=== PATIENT | male | born 1960 | race Caucasian/White ===

== ENCOUNTER 2017-04-05 22:38 | Inpatient (IN) | payer OTHER ==
[~2017-04-05] VITALS: Ht 167.6 cm; Wt 85.5 kg
[2017-04-05 23:05] LABS: ABSOLUTE BASOPHIL COUNT 0 /CUMM (0.0-0.2); ABSOLUTE EOSINOPHIL COUNT 0.1 /CUMM (0.0-0.7); ABSOLUTE GRANULOCYTE CT 3.9 /CUMM (1.4-6.5); ABSOLUTE LYMPH COUNT 1.7 /CUMM (1.2-3.4); ABSOLUTE MONOCYTE COUNT 0.3 /CUMM (0.10-0.60); BASOPHIL % 0.3 % (0.0-2.0); EOSINOPHIL % 2.2 % (0-5); GRANULOCYTE % 64.5 % (42.2-75.2); MEAN CORPUSCULAR HGB 31.4 PG (27.0-31.0); MEAN CORPUSCULAR HGB CONC 34.7 G/DL (33.0-37.0); MEAN CORPUSCULAR VOLUME 90.6 FL (80.0-94.0); MEAN PLATELET VOLUME 7.4 FL (7.4-10.4); PLATELET COUNT 176 /CUMM (130-400); RBC DISTRIBUTION WIDTH 13.1 % (11.5-14.5); RED BLOOD CELL CT 4.62 /CUMM (4.70-6.10)
[2017-04-05 23:17] LABS: HEMATOCRIT 41.8 % (42-52)
--- NOTE | 2017-04-06 03:15 | History & Physical ---
LOU BEAL MD 04/06/17 0315: General Information and HPI MD Statement: I have seen and personally examined LOU SAUER and documented this H&P. The patient is a 56 year old M who presented with a patient stated chief complaint of chest pain. Source of Information: patient Exam Limitations: no limitations History of Present Illness: 56 year old man with no PMH presents with complaints of 1 week of feeling chest pressure 7/10 in intensity, that lasts less than 10 minutes typically accompanies with shortness of breath and mild diaphoresis during exertion. Chest pressure is relieved by rest. ROS otherwise negative. FH significant for MD in father at 48. Patient experiences heart burn and states this pain is distinctly different. Allergies/Medications Allergies: Coded Allergies: No Known Allergies (04/05/17) Past History Travel History Traveled to [place] past 21 day No Medical History Neurological: NONE EENT: NONE Cardiovascular: NONE Respiratory: NONE Gastrointestinal: NONE Hepatic: NONE Renal: NONE Musculoskeletal: NONE Psychiatric: NONE Endocrine: NONE Surgical History Surgical History: none Past Family/Social History Family History Relations & Conditions if any FATHER FH: myocardial infarction, Onset: 40-50. Psychosocial History Smoking Status: Never Smoked ETOH Use: occasional use Review of Systems Review of Systems Constitutional: Denies: no symptoms. EENTM: Denies: no symptoms. Cardiovascular: Reports: chest pain. Respiratory: Reports: short of breath. GI: Denies: no symptoms. Genitourinary: Denies: no symptoms. Musculoskeletal: Denies: no symptoms. Skin: Denies: no symptoms. Neurological/Psychological: Denies: no symptoms. Exam & Diagnostic Data Last 24 Hrs of Vital Signs/I&O Vital Signs Date Time Temp Pulse Resp B/P B/P Pulse O2 O2 Flow FiO2 Mean Ox Delivery Rate 04/06 0255 97.0 56 18 145/75 98 Room Air 04/06 0120 98 Room Air 04/06 0116 73 18 133/69 98 Room Air 04/05 2247 96.9 66 22 138/73 98 Intake & Output 04/06 0800 04/06 0000 04/05 1600 Intake Total Output Total Balance Patient 190 lb Weight Physical Exam General Appearance Alert, Oriented X3, Cooperative, No Acute Distress Skin No Rashes HEENT Atraumatic, PERRLA, EOMI, Mucous Membr. moist/pink Neck Supple, No JVD Cardiovascular Regular Rate, Normal S1, Normal S2, No Murmurs Lungs Clear to Auscultation, Normal Air Movement Abdomen Normal Bowel Sounds, Soft, No Tenderness, No Masses Neurological Normal Speech, Strength at 5/5 X4 Ext, Normal Tone Extremities No Clubbing, No Cyanosis, No Edema, Normal Pulses Last 24 Hrs of Labs/Dax: Laboratory Tests 04/05/17 2300: Anion Gap 7, Estimated GFR > 60, BUN/Creatinine Ratio 22.7, Glucose 107 H, Calcium 8.8, Total Bilirubin 0.3, AST 24, ALT 35, Alkaline Phosphatase 53, Troponin I 0.04, Total Protein 5.7 L, Albumin 3.5, Globulin 2.2, Albumin/ Globulin Ratio 1.6, CBC w Diff NO MAN DIFF REQ, RBC 4.62 L, MCV 90.6, MCH 31.4 H, RDW 13.1, MPV 7.4, Gran % 64.5, Lymphocytes % 27.5, Monocytes % 5.5, Eosinophils % 2.2, Basophils % 0.3, Absolute Granulocytes 3.9, Absolute Lymphocytes 1.7, Absolute Monocytes 0.3, Absolute Eosinophils 0.1, Absolute Basophils 0, PUBS MCHC 34.7 Diagnostic Data EKG Results NSR Assessment/Plan Assessment: 56 year old man with no PMH presents with chest pressure on observation to rule out acute coronary syndrome. 1. Chest pressure: no ischemic EKG changes, first troponin negative. Observation status on telemetry, vitals q shift and continuous rhythm monitoring Trend serial troponins and EKGs Patient received aspirin in the ER Consider beta blockade for hypertension, currently in NSR with HR of 60. Echocardiogram and possible stress test as an outpatient if ruled out for ACS No home medications Heart healthy diet DVT ppx-lovenox Full code As Ranked By This Provider Problem List: 1. Chest pain Core Measures/Miscellaneous Acute Coronary Syndrome ACS Diagnosis: No Cerebrovascular Accident CVA/TIA Diagnosis: No Congestive Heart Failure CHF Diagnosis: No VTE (View Protocol) VTE Risk Factors: Acute medical illness, Age > 40 [facility] prophylaxis d/t: No contraindications No VTE Pharm Prophylaxis d/t: No contraindications VTE Diagnosis: No VTE Type: NONE VTE Confirmed by (Test): NONE Sepsis (View Protocol) Severe Sepsis Present: No Septic Shock Septic Shock Present: No Miscellaneous Documentation Attending Case Discussed With: RATNA HARRIS MD Primary Care Physician: ATUL MENDENHALL,CARLOTTA Dasilva Patient sees these Specialists none Level of Patient Care: Telemetry Consults Needed: Consulting Specialty: Cardiology MEI MORENO 04/06/17 0350: General Information and HPI Allergies/Medications Home Med list No Known Home Medications Resident Review Statement Resident Statement: examined this patient, discussed with security intern, agreed with security intern Other Findings: Patient is 56-year-old patient is a 56-year-old male with nonsignificant past medical history came with chief complaint of substernal chest pressure off and on for couple of days. Patient mentioned that he had exertional chest pain and shortness of breath which stayed almost for 10 minutes relieved with rest, 7 out of 10 in severity, pressure or burning in nature at multiple occasions in past week. This morning after breakfast he experienced the same symptoms, 911 was called and by the time they were reached patient was asymptomatic. Later on he came to ER for further evaluation. He has significant family history of cardiac events. His father at age 48 with MD. He denied any chest pain at the moment, palpitations, headache, dizziness, shortness of breath, fever, chills, any urinary or bowel complaints. The signs on admission were that pressure 133/69, respiratory rate 18, pulse 73, he was saturating 98% on room air. Labs were significant for WBC count 6.0, hemoglobin 14.5, hematocrit 41.8, to 6, sodium 144, potassium 3.4, chloride 107, creatinine 1.1, troponin 0.04, EKG was negative for any acute ST-T wave changes His examination Alert and oriented 3 Head atraumatic Neck supple Chest clear to auscultate CVS, normal S1-S2 no added sounds Abdomen soft with normal bowel sounds Extremities showed no edema or cyanosis Neurological examination showed no neurological deficit Assessment and plan 56-year-old male with significant family history of heart attack in his father at age 48 with no significant past medical history came with atypical chest pain with exertion most likely stable angina needs ACS to be ruled out. We will admit patient on telemetry floor and we will address for problem Problem #1 exertional chest pressure most likely anginal chest pain We will trend troponins and EKGs Echocardiogram in a.m. Cardiology consultation in a.m. Patient would be benefited from stress test it could be done as outpatient but patient would be evaluated by cardiology and we will do stress test accordingly. Heart healthy diet Patient is full code Pharmacological DVT prophylaxis STEVEN MENDENHALL, [facility] 04/06/17 0456: Attending MD Review Statement Attending Statement Attending MD Statement: examined this patient, discuss w/resident/PA/STAMP MOUNTER, agreed w/resident/PA/STAMP MOUNTER, discussed with family Attending Assessment/Plan: 56 yo obese M ex-smoker with h/o heartburn, family h/o MD in father @ 48 yrs, presents to [place] for evaluation of chest pressure. Patient first noticed substernal chest pressure 10 days ago that was non radiating, lasted about 10 mins and resolved with rest. He saw his PCP Dr. Curtis 1 week ago and got blood work done at [place]- results of which he is not aware. Over the past 1 week, he has experienced similar chest pressure atleast twice a day especially on exertion and relieved on rest. He reports that this is not similar to the heartburn symptoms he has had in the past which is relieved with keith seltzer. This evening, around 9.30 pm, he ate a bowl of cereal and immediately after developed SSCP associated with difficulty breathing, nausea and diaphoresis. SSCP was nonradiating, 10/10 and lasted for about 45 minutes after which it resolved on its own. He is chest pain free on ER arrival and on my evaluation. No previous cardiac history, never had a stress test or seen a dust operator. Patient reports smoking weed every few days, last he smoked was on day of admission. VSS. Examination unremarkable. Labs: H/H 14.5/41.8, K 3.4, BUN 25, glucose 107, troponin 0.04, lipid panel: cholesterol 204, TG 240, HDL 54, LDL 102 (04/01), TSH 1.910. EKG: SR @ 60, minimal <[address] depressions in inferior leads, Qtc 420. 1. Chest pain, rule out acute coronary syndrome. Tele 23 Obs, monitor for arrhythmias, serial EKG and troponin, obtain echo to assess for RWMA and LVEF, Cardio consult in AM. Aspirin 325 mg given in ER, continue 81 mg daily. Monitor for chest pain, consider SL nitro as needed. Check HbA1c and urine tox screen. No need to repeat lipid panel (done recently). Lifestyle changes, recheck lipid panel in 6 months. Inpatient vs. Outpatient stress test. If he rules out for MD, would do empiric trial of PPI for 2 weeks and outpatient GI follow up for eventual EGD as needed. 2. Hypokalemia. Repleted with PO supplements. DVT ppx Lovenox. Full code. Observation Initial Note - I have personally examined TEAGANLOU Bhatti on 04/06/17 at 0457. The disposition of LOU SAUER is uncertain at this time and before a determination can be made, he requires a period of observation for the following reasons [substernal chest pressure needs to evaluated for acute coronary event, cardiology eval and possible stress test.]
--- NOTE | 2017-04-06 04:37 | RADIOLOGY REPORT ---
EXAMINATION: XR PORTABLE CHEST CLINICAL INFORMATION: Chest pain. COMPARISON: None TECHNIQUE: Portable frontal view of the chest was obtained. 4:02 AM FINDINGS: No significant abnormality is noted involving the heart, lungs, mediastinum, bony thorax or soft tissues. IMPRESSION: Unremarkable examination.
[2017-04-06 05:31] VITALS: BP 144/76
--- NOTE | 2017-04-06 07:12 | PN- Housestaff ---
Assessment/Plan Consulting Request: Consulting Specialty: Cardiology
--- NOTE | 2017-04-06 07:13 | PN-Observation ---
Assessment/Plan Consulting Request: Consulting Specialty: Cardiology
--- NOTE | 2017-04-06 09:35 | PN- Housestaff ---
Subjective Follow-up For: -NSTEMI Complaints: no complaints Tele-Events Since Last Visit: Normal sinus rhythm, heart rate 60s. Overnight, the patient did not have any telemetry events. Vitals remained stable. He was afebrile. Subjective: The pt was comfortable this morning. Did not have any chest discomfort. Review of Systems Constitutional: Reports: see HPI. EENTM: Denies: visual changes. Cardiovascular: Denies: chest pain, orthopena, palpitations. Respiratory: Denies: cough, hemoptysis, short of breath. Gastrointestinal: Denies: abdominal pain, melena, nausea, bloody stool. Genitourinary: Denies: discharge. Musculoskeletal: Denies: back pain, joint pain. Skin: Denies: change in skin color. Objective Last 24 Hrs of Vital Signs/I&O Vital Signs Date Time Temp Pulse Resp B/P B/P Pulse O2 O2 Flow FiO2 Mean Ox Delivery Rate 04/06 0531 98.8 64 18 144/76 95 Room Air 04/06 0422 96.8 63 18 179/75 99 Room Air 04/06 0255 97.0 56 18 145/75 98 Room Air 04/06 0120 98 Room Air 04/06 0116 73 18 133/69 98 Room Air 04/05 2247 96.9 66 22 138/73 98 Intake & Output 04/06 1600 04/06 0800 04/06 0000 Intake Total Output Total 550 Balance -550 Number 0 Bowel Movements Output, Urine 550 Patient 189 lb 190 lb 190 lb Weight Weight Chair scale Measurement Method Physical Exam General Appearance: Alert, Oriented X3, No Acute Distress Skin: No Rashes, No Breakdown Skin Temp/Moisture Exam: Warm/Dry Sepsis Skin Exam (color): Normal for Ethnicity HEENT: Atraumatic, PERRLA, EOMI Neck: Supple Lymphatic: Cervical nl Cardiovascular: Regular Rate, Normal S1, Normal S2 Lungs: Clear to Auscultation, Normal Air Movement Abdomen: Normal Bowel Sounds, Soft, No Tenderness Neurological: Normal Speech, Strength at 5/5 X4 Ext, Normal Tone, Sensation Intact, Cranial Nerves 3-12 NL, Reflexes 2+ Extremities: No Cyanosis, No Edema, Normal Pulses Vascular: Pulses Symmetrical Current Medications: Current Medications Sig/Sam Start time Last Medication Dose Route Stop Time Status Admin Acetaminophen 650 MG Q6P PRN 04/06 0400 AC PO Aspirin 81 MG DAILY 04/06 1000 AC PO Aspirin 0 .STK-MED ONE 04/06 0122 DC PO Aspirin 325 MG ONCE ONE 04/06 0115 DC 04/06 PO 04/06 011 0116 Atorvastatin Calcium 80 MG 1700 04/06 0915 AC PO Enoxaparin Sodium 40 MG DAILY 04/06 1000 AC SC Heparin Sodium 25,000 UNIT Q24H 04/06 0915 AC (Porcine) IV Sodium Chloride 500 ML Ibuprofen 600 MG Q6P PRN 04/06 0400 AC PO Metoprolol Tartrate 12.5 MG DAILY 04/06 1000 AC PO Oxycodone HCl 10 MG Q6P PRN 04/06 0400 AC PO Potassium Chloride 0 .STK-MED ONE 04/06 0424 DC PO Potassium Chloride 40 MEQ ONCE ONE 04/06 415 DC 04/06 PO 04/06 416 042 Last 24 Hrs of Lab/Dax Results Last 24 Hrs of Labs/Mics: Laboratory Tests 04/06/17 0520: Troponin I 0.14 *H 04/06/17 0520: Anion Gap 8, Estimated GFR > 60, BUN/Creatinine Ratio 22.2, Urine Opiates Screen < 100.00, Methadone Screen < 40, Barbiturate Screen < 60, Ur Phencyclidine Scrn < 6.00, Amphetamines Screen < 100, U Benzodiazepines Scrn < 85, Urine Cocaine Screen 286, Urine Cannabis Screen > 80.00 H 04/05/17 2300: Anion Gap 7, Estimated GFR > 60, BUN/Creatinine Ratio 22.7, Glucose 107 H, Hemoglobin A1c 5.3, Calcium 8.8, Total Bilirubin 0.3, AST 24, ALT 35, Alkaline Phosphatase 53, Troponin I 0.04, Total Protein 5.7 L, Albumin 3.5, Globulin 2.2 , Albumin/Globulin Ratio 1.6, CBC w Diff NO MAN DIFF REQ, RBC 4.62 L, MCV 90.6, MCH 31.4 H, RDW 13.1, MPV 7.4, Gran % 64.5, Lymphocytes % 27.5, Monocytes % 5.5 , Eosinophils % 2.2, Basophils % 0.3, Absolute Granulocytes 3.9, Absolute Lymphocytes 1.7, Absolute Monocytes 0.3, Absolute Eosinophils 0.1, Absolute Basophils 0, PUBS MCHC 34.7 Assessment/Plan Assessment: Mr Huddleston is a 56 yr old nonsmoking man with a family history of coronary artery disease is being evaluated for exertional chest discomfort 1 week, associated with shortness of breath. At the time of admission, vitals-temperature 96.9, pulse rate 66, blood pressure 138/78, pulse ox 98% on room air. In the last 24 hours, vitals were stable. Lab findings indicated-no leukocytosis, H&H normal, platelets normal. Lites- found to be hypokalemic potassium 3.4 (replenished accordingly), normal renal function BUN 20, serum creatinine 0.9, HbA1c 5.3. Hepatic panel-within normal limits. Cardiac enzymes-0.04--> 0.14. EKG revealed ST segment changes (depression) V4, V5, which seem more pronounced compared to the time of admission. Normal sinus rhythm, normal axis. Differential diagnosis: #1 non-ST segment elevation RI. #2 gastroesophageal reflux disease #3 type II RI Below is the problem list and plan: #1 non-ST segment elevation RI- patient has a strong family history, father age less than 50; male. JEREMIAH risk score-2. Patient was given aspirin 325 mg at the time of presentation to the ED. Continue daily dose of aspirin, beta brenda, and high-dose statin. Last lipid panel was checked fairly recently which revealed elevated cholesterol and triglycerides. Start the patient on high intensity statin. Follow serial echocardiograms and cardiac enzymes. Started the patient on intravenous heparin, but held off at the moment, as per the patient's wishes (who would like to discuss with the business law professor prior to starting any anti-anginal/cardiac medications). Await recommendations from cardiology, if catheterization is needed. #2 DVT prophylaxis-continue Lovenox subcutaneous until IV heparin is begun. Problem List: 1. Chest pain Pain Ratin Pain Location: chest Pain Goal: Pain 4 or less Pain Plan: oxycodone Tomorrow's Labs & Rationales: bep- pt had hypokalemia Consulting Request: Consulting Specialty: Cardiology
--- NOTE | 2017-04-06 10:27 | PN- Att Addend ---
Attending Addendum Attending Brief Note Patient seen and examined. Plan of care discussed with the medical team and the patient. Available lab work and radiology test reports were reviewed. History was reviewed with the patient again. This morning patient denies any pain nausea or sweats. He appears somewhat anxious. Denies any recent fever or chills. Vital Signs Date Time Temp Pulse Resp B/P B/P Pulse O2 O2 Flow FiO2 Mean Ox Delivery Rate 04/06 0531 98.8 64 18 144/76 95 Room Air 04/06 0422 96.8 63 18 179/75 99 Room Air 04/06 0255 97.0 56 18 145/75 98 Room Air 04/06 0120 98 Room Air 04/06 0116 73 18 133/69 98 Room Air 04/05 2247 96.9 66 22 138/73 98 Intake & Output 04/06 1600 04/06 0800 04/06 0000 Intake Total Output Total 550 Balance -550 Number 0 Bowel Movements Output, Urine 550 Patient 189 lb 190 lb 190 lb Weight Weight Chair scale Measurement Method Exam: General: Patient awake alert oriented without any distress; he is anxious CVS: S1 plus S2 without any murmur or gallops Chest: Few scattered crepitation without any wheeze. There is no respiratory distress. Abdomen: Soft nontender, bowel sound present, no guarding or rebound LOSS CLAIM CLERK: Awake alert oriented without any focal neuro deficit and follows command appropriately Extremities: No edema; no clubbing or cyanosis noted Laboratory Tests 04/06 04/06 04/05 0520 0520 2300 Chemistry Sodium (137 - 145 mmol/L) 142 144 Potassium (3.5 - 5.1 mmol/L) 4.2 3.4 L Chloride (98 - 107 mmol/L) 109 H 107 Carbon Dioxide (22 - 30 mmol/L) 25 29 Anion Gap (5 - 16) 8 7 BUN (9 - 20 mg/dL) 20 25 H Creatinine (0.7 - 1.2 mg/dL) 0.9 1.1 Estimated GFR (>60 ml/min) > 60 > 60 BUN/Creatinine Ratio (7 - 25 %) 22.2 22.7 Glucose (65 - 99 mg/dL) 107 H Hemoglobin A1c (4.2 - 5.8 %) 5.3 Calcium (8.4 - 10.2 mg/dL) 8.8 Total Bilirubin (0.2 - 1.3 mg/dL) 0.3 AST (17 - 59 U/L) 24 ALT (21 - 72 U/L) 35 Alkaline Phosphatase (< 127 U/L) 53 Troponin I (<0.11 ng/ml) 0.14 *H 0.04 Total Protein (6.3 - 8.2 g/dL) 5.7 L Albumin (3.5 - 5.0 g/dL) 3.5 Globulin (1.9 - 4.2 gm/dL) 2.2 Albumin/Globulin Ratio (1.1 - 2.2 %) 1.6 Hematology CBC w Diff NO MAN DIFF REQ WBC (4.8 - 10.8 /CUMM) 6.0 RBC (4.70 - 6.10 /CUMM) 4.62 L Hgb (14.0 - 18.0 G/DL) 14.5 Hct (42 - 52 %) 41.8 L MCV (80.0 - 94.0 FL) 90.6 MCH (27.0 - 31.0 PG) 31.4 H RDW (11.5 - 14.5 %) 13.1 Plt Count (130 - 400 /CUMM) 176 MPV (7.4 - 10.4 FL) 7.4 Gran % (42.2 - 75.2 %) 64.5 Lymphocytes % (20.5 - 51.1 %) 27.5 Monocytes % (1.7 - 9.3 %) 5.5 Eosinophils % (0 - 5 %) 2.2 Basophils % (0.0 - 2.0 %) 0.3 Absolute Granulocytes (1.4 - 6.5 /CUMM) 3.9 Absolute Lymphocytes (1.2 - 3.4 /CUMM) 1.7 Absolute Monocytes (0.10 - 0.60 /CUMM) 0.3 Absolute Eosinophils (0.0 - 0.7 /CUMM) 0.1 Absolute Basophils (0.0 - 0.2 /CUMM) 0 PUBS MCHC (33.0 - 37.0 G/DL) 34.7 Toxicology Urine Opiates Screen (>2000 NG/ML) < 100.00 Methadone Screen (>300 NG/ML) < 40 Barbiturate Screen (>200 NG/ML) < 60 Ur Phencyclidine Scrn (>25 NG/ML) < 6.00 Amphetamines Screen (>1000 NG/ML) < 100 U Benzodiazepines Scrn (>200 NG/ML) < 85 Urine Cocaine Screen (>300 NG/ML) 286 Urine Cannabis Screen (>50 NG/ML) > 80.00 H Chest x-ray upon admission was unremarkable EKG does not show ST elevation Assessment * Non-ST segment elevation WV- strong family history with father dying of W[place] at young age * Suspected GERD * Mild hypokalemia resolved * Cannabis use Plan * Start heparin drip IV and stop Lovenox * Start statins * Start beta brenda with Lopressor 12.5 twice a day * Continue aspirin * Cardiac consult- * Echocardiogram * Patient likely will need stress test or cardiac catheterization * Continue telemetry monitoring
[2017-04-06 10:45] VITALS: BP 142/70
--- NOTE | 2017-04-06 11:20 | Cons- Cardiology ---
General Information and HPI Consulting Request Date of Consult: 04/06/17 Requested By: STEVEN MENDENHALL,NIKKIKSHMI Reason for Consult: Unstable angina History of Present Illness: The patient is a 56-year-old male with strong family history of coronary artery disease who presents with complaint of chest discomfort. He has been having intermittent chest discomfort for the past week which has been up to a 8 out of 10 in severity. It is typically brought on by exertion. He describes it as either a squeezing or burning in the substernal area. Last night he had an episode of squeezing which wasn't out of 10 in severity and was associated with diaphoresis. There is no radiation. He also notes intermittent shortness of breath associated with the chest discomfort. His father of a myocardial infarction at age 48 after having his first myocardial infarction at age 36. The patient quit smoking 26 years ago. He drinks up to 6 beers several days a week. He is currently pain-free. No syncope. No orthopnea. No lightheadedness or dizziness. No nausea or vomiting. No prior history of cardiac disease. Allergies/Medications Allergies: Coded Allergies: No Known Allergies (04/05/17) Home Med List: Aspirin (Aspirin*) 81 MG TAB.CHEW 81 MG PO DAILY HEART [facility]ALTH Atorvastatin Calcium 80 MG TABLET 80 MG PO 1700 HE[facility] HEALTH Metoprolol Tartrate 25 MG TABLET 12.5 MG PO BID HEART [facility] Current Medications: Current Medications Sig/Sam Start time Last Medication Dose Route Stop Time Status Admin Acetaminophen 650 MG Q6P PRN 04/06 0400 AC PO Aspirin 81 MG DAILY 04/06 1000 AC 04/06 PO 1045 Aspirin 0 .STK-MED ONE 04/06 0122 DC PO Aspirin 325 MG ONCE ONE 04/06 0115 DC 04/06 PO 04/06 0116 0116 Atorvastatin Calcium 80 MG 1700 04/06 0915 AC PO Enoxaparin Sodium 40 MG DAILY 04/06 1000 AC SC Heparin Sodium 25,000 UNIT Q24H 04/06 0915 AC (Porcine) IV Sodium Chloride 500 ML Ibuprofen 600 MG Q6P PRN 04/06 0400 AC PO Metoprolol Tartrate 12.5 MG BID 04/06 2200 AC 04/06 PO 1045 Metoprolol Tartrate 12.5 MG DAILY 04/06 1000 DC PO Oxycodone HCl 10 MG Q6P PRN 04/06 0400 AC PO Potassium Chloride 0 .STK-MED ONE 04/06 0424 DC PO Potassium Chloride 40 MEQ ONCE ONE 04/06 0415 DC 04/06 PO 04/06 0416 0422 Review of Systems Review of Systems: No rash. No tremor. No melena. All other systems were reviewed, and were noted to be negative. Past History Travel History Traveled to [place] past 21 day No Medical History Blood Transfusion Hx: No Neurological: NONE EENT: NONE Cardiovascular: NONE Respiratory: NONE Gastrointestinal: NONE Hepatic: NONE Renal: NONE Musculoskeletal: NONE Psychiatric: NONE Endocrine: NONE Blood Disorders: NONE Cancer(s): NONE Surgical History Surgical History: 1 Family History Relations & Conditions If Any: FATHER FH: myocardial infarction, Onset: 40-50. Psychosocial History Where Do You Live? Home Smoking Status: Former Smoker ETOH Use: occasional use Exam & Diagnostic Data Vital Signs and I&O Vital Signs Date Time Temp Pulse Resp B/P B/P Pulse O2 O2 Flow FiO2 Mean Ox Delivery Rate 04/06 1045 63 142/70 04/06 0531 98.8 64 18 144/76 95 Room Air 04/06 0422 96.8 63 18 179/75 99 Room Air 04/06 0255 97.0 56 18 145/75 98 Room Air 04/06 0120 98 Room Air / 0116 73 18 133/69 98 Room Air / 2247 96.9 66 22 138/73 98 Intake & Output 04/06 1600 /03 0800 /03 0000 / 1600 04/05 0800 04/05 0000 Intake Total Output Total 550 Balance -550 Number 0 Bowel Movements Output, Urine 550 Patient 189 lb 190 lb 190 lb Weight Weight Chair scale Measurement Method Physical Exam: Gen: The patient is in no acute distress HEENT: Normal nose, ears, and oropharynx. Pupils equal bilaterally. Conjunctiva normal. Neck: Supple with no JVD, no masses, and no thyromegaly Lungs: Clear to auscultation with normal respiratory effort Heart: RRR, S1, S2, no murmurs. No peripheral edema, 2+ pulses in the lower extremities bilaterally Abdomen: Soft, nontender, no masses. No hepatomegaly. No splenomegaly Extremities: No clubbing or cyanosis. Normal muscle strength in the upper and lower extremities Skin: Normal skin turgor with no skin ulcers or lesions noted. Neuro: Cranial nerves intact. Sensation intact Psych: Alert and oriented 3 with appropriate affect Labs/Dax Results: Laboratory Tests 04/06 04/06 04/06 1105 0520 0520 Chemistry Sodium (137 - 145 mmol/L) 142 Potassium (3.5 - 5.1 mmol/L) 4.2 Chloride (98 - 107 mmol/L) 109 H Carbon Dioxide (22 - 30 mmol/L) 25 Anion Gap (5 - 16) 8 BUN (9 - 20 mg/dL) 20 Creatinine (0.7 - 1.2 mg/dL) 0.9 Estimated GFR (>60 ml/min) > 60 BUN/Creatinine Ratio (7 - 25 %) 22.2 Troponin I (<0.11 ng/ml) Pending 0.14 *H Toxicology Urine Opiates Screen (>2000 NG/ML) < 100.00 Methadone Screen (>300 NG/ML) < 40 Barbiturate Screen (>200 NG/ML) < 60 Ur Phencyclidine Scrn (>25 NG/ML) < 6.00 Amphetamines Screen (>1000 NG/ML) < 100 U Benzodiazepines Scrn (>200 NG/ML) < 85 Urine Cocaine Screen (>300 NG/ML) 286 Urine Cannabis Screen (>50 NG/ML) > 80.00 H 04/05 2300 Chemistry Sodium (137 - 145 mmol/L) 144 Potassium (3.5 - 5.1 mmol/L) 3.4 L Chloride (98 - 107 mmol/L) 107 Carbon Dioxide (22 - 30 mmol/L) 29 Anion Gap (5 - 16) 7 BUN (9 - 20 mg/dL) 25 H Creatinine (0.7 - 1.2 mg/dL) 1.1 Estimated GFR (>60 ml/min) > 60 BUN/Creatinine Ratio (7 - 25 %) 22.7 Glucose (65 - 99 mg/dL) 107 H Hemoglobin A1c (4.2 - 5.8 %) 5.3 Calcium (8.4 - 10.2 mg/dL) 8.8 Total Bilirubin (0.2 - 1.3 mg/dL) 0.3 AST (17 - 59 U/L) 24 ALT (21 - 72 U/L) 35 Alkaline Phosphatase (< 127 U/L) 53 Troponin I (<0.11 ng/ml) 0.04 Total Protein (6.3 - 8.2 g/dL) 5.7 L Albumin (3.5 - 5.0 g/dL) 3.5 Globulin (1.9 - 4.2 gm/dL) 2.2 Albumin/Globulin Ratio (1.1 - 2.2 %) 1.6 Hematology CBC w Diff NO MAN DIFF REQ WBC (4.8 - 10.8 /CUMM) 6.0 RBC (4.70 - 6.10 /CUMM) 4.62 L Hgb (14.0 - 18.0 G/DL) 14.5 Hct (42 - 52 %) 41.8 L MCV (80.0 - 94.0 FL) 90.6 MCH (27.0 - 31.0 PG) 31.4 H RDW (11.5 - 14.5 %) 13.1 Plt Count (130 - 400 /CUMM) 176 MPV (7.4 - 10.4 FL) 7.4 Gran % (42.2 - 75.2 %) 64.5 Lymphocytes % (20.5 - 51.1 %) 27.5 Monocytes % (1.7 - 9.3 %) 5.5 Eosinophils % (0 - 5 %) 2.2 Basophils % (0.0 - 2.0 %) 0.3 Absolute Granulocytes (1.4 - 6.5 /CUMM) 3.9 Absolute Lymphocytes (1.2 - 3.4 /CUMM) 1.7 Absolute Monocytes (0.10 - 0.60 /CUMM) 0.3 Absolute Eosinophils (0.0 - 0.7 /CUMM) 0.1 Absolute Basophils (0.0 - 0.2 /CUMM) 0 PUBS MCHC (33.0 - 37.0 G/DL) 34.7 Diagnostic Data EKG Results EKG tracing is independently reviewed, and reveals normal sinus rhythm at 54 with no ischemic changes CXR Results Chest x-ray: Negative Assessment/Plan Assessment/Plan Assessment: The patient is a 56-year-old male with a very strong family history of myocardial infarction in his father at a young age and prior history of tobacco abuse. He presents with chest discomfort over the past week exacerbated by exertion, and he is noted to have a mild troponin elevation consistent with acute coronary syndrome. Plan: * Continue aspirin * Continue metoprolol * Continue atorvastatin * Transfer to [facility] for cardiac catheterization with Dr. Patel * The patient declines IV heparin for now, however he agrees to start on IV heparin if he has recurrent chest discomfort or if his catheterization confirms CAD. He understands the need for dual antiplatelet therapy for at least one year if he has a stent placed and he is agreeable with this. * Follow up in the office one week after discharge Copies To: ATUL MENDENHLAL,CARLOTTA Dasilva Consult Acknowledgment - Thank you for your consult request.
--- NOTE | 2017-04-06 11:48 | Discharge Summary ---
Visit Information Visit Dates Admission Date: 04/06/17 Discharge Date: 04/06/17 Hospital Course Course Attending Physician: RATNA HARRIS MD Primary Care Physician: ATUL MENDENHALL,CARLOTTA Dasilva Consulting Request: Consulting Specialty: Cardiology Hospital Course: Mr Huddleston is a 56 yr old nonsmoking man(quit 26 yrs ago) with a family history of coronary artery disease(father of a myocardial infarction at age 48 after having his first myocardial infarction at age 36) is being evaluated for exertional chest discomfort 1 week, associated with shortness of breath. Intermittent chest discomfort, 8 out of 10 in severity brought on by exertion. Reported as either a squeezing or burning in the substernal area. The night prior to the presentation, he had an episode of squeezing chest discomfort and was associated with diaphoresis that brought him to the hospital. He was admitted to telemetry floor for closer monitoring. At the time of admission, vitals-temperature 96.9, pulse rate 66, blood pressure 138/78, pulse ox 98% on room air. In the last 24 hours, vitals were stable, with no telemetry events. Lab findings indicated-no leukocytosis, H&H normal, platelets normal. Lites- found to be hypokalemic potassium 3.4 (replenished accordingly), normal renal function BUN 20, serum creatinine 0.9, HbA1c 5.3. Hepatic panel-within normal limits. Cardiac enzymes-0.04--> 0.14. EKG revealed ST segment changes (depression) V4, V5, which seem more pronounced compared to the time of admission. Normal sinus rhythm, normal axis. Differential diagnosis: #1 non-ST segment elevation NH. Below is the problem list and plan: #1 non-ST segment elevation NH- patient has a strong family history, fathers age of diagnosis less than 50; male. JEREMIAH risk score-2. Patient was given aspirin 325 mg at the time of presentation. Continued on daily dose of aspirin, beta brenda, and high-dose statin. Intravenous heparin was not started, as the patient did not want to have any anticoagulation for the moment. Explained the risks versus benefits. Patient would not like to start any form of anticoagulation, and would only start after cardiac catheterization is done, if needed. He was transferred to [facility] for a cardiac catheterization , as per Dr. Marte's recommendation. Allergies: Coded Allergies: No Known Allergies (04/05/17) Pertinent Lab Results: Chest X Ray- No significant abnormality is noted involving the heart, lungs, mediastinum, bony thorax or soft tissues. IMPRESSION: Unremarkable examination. Disposition Summary Disposition Principal Diagnosis: NSTEMI Additional Diagnosis: Acute coronary syndrom, hyperlipidemia Discharge Disposition: other general hospital Discharge Instructions General Discharge Information Code Status: Full Code Patient's Diet: NPO, and heart heatlhy diet after the procedure. Patient's Activity: As tolerated Follow-Up Instructions/Appts: #1 please follow up with her primary care doctor within 1-2 weeks of discharge. #2 please follow-up with your cream dumper-Fariba Crane MD/Dr. Mcintyre within 1-2 weeks of discharge. #3 please take your medications as prescribed. Next #4 please discuss with your cream dumper, after cardiac catheterization about blood thinning medication to be restarted. Medications at Discharge Discharge Medications: Start taking the following new medications: Atorvastatin Calcium (Atorvastatin Calcium) 80 MG TABLET 80 Milligram ORAL 5 PM Days = 30 No Refills Metoprolol Tartrate (Metoprolol Tartrate) 25 MG TABLET 12.5 Milligram ORAL TWICE DAILY Days = 30 No Refills Aspirin (Aspirin*) 81 MG TAB.CHEW 81 Milligram ORAL DAILY Days = 30 No Refills Copies To: ATUL MENDENHALL,CARLOTTA Dasilva Attending MD Review Statement Documenting Attending: ABDULLAHI MENDENHALL,MARCUS
[2017-04-06] MEDS ORDERED: ATORVASTATIN CA80 M1 PO (11:52)
[2017-04-06] MEDS ORDERED: ASPIRIN81 M4 PO (11:52)
[2017-04-06] MEDS ORDERED: METOPROLOL TART25 M1 PO (11:52)
--- NOTE | 2017-04-06 11:54 | Patient Discharge Instructions ---
Discharge Instructions General Discharge Information You were seen/treated for: Chest pain Watch for these problems: #1 Chest pain, shortness of breath #2 lightheadedness, dizziness, palpitations (rapid heartbeat). Special Instructions: #1 please follow up with her primary care doctor within 1-2 weeks of discharge. #2 please follow-up with your cottage master-Fariba Crane MD/Dr. Mcintyre within 1-2 weeks of discharge. #3 please take your medications as prescribed. #4 please discuss with your cottage master, after cardiac catheterization about blood thinning medication to be restarted. Acute Coronary Syndrome Inclusion Criteria At DC or during hospital stay patient has or had the following: ACS DIAGNOSIS No Discharge Core Measures Meds if any: Prescribed or Continued at Discharge Meds if any: NOT Prescribed or Continued at Discharge Congestive Heart Failure Inclusion Criteria At DC or during hospital stay patient has or had the following: CHF DIAGNOSIS No Discharge Core Measures Meds if any: Prescribed or Continued at Discharge Meds if any: NOT Prescribed or Continued at Discharge Cerebrovascular accident Inclusion Criteria At DC or during hospital stay patient has or had the following: CVA/TIA Diagnosis No Discharge Core Measures Meds if any: Prescribed or Continued at Discharge Meds if any: NOT Prescribed or Continued at Discharge Venous thromboembolism Inclusion Criteria VTE Diagnosis No VTE Type NONE VTE Confirmed by (Test) NONE Discharge Core Measures - Per Current guidelines, there needs to be overlap - treatment for the first 5 days of Warfarin therapy. - If discharged on Warfarin prior to 5 days of - overlap therapy, the patient will need to be - assessed for post discharge needs including - *Post discharge parental anticoagulation - *Warfarin and/or parental anticoagulation education - *Follow up date to check INR post discharge At least 5 days overlap therapy as Inpatient No Meds if any: Prescribed or Continued at Discharge Note: Overlap Therapy is Warfarin and Anticoagulant Meds if any: NOT Prescribed or Continued at Discharge
--- NOTE | 2017-04-07 21:34 | ECHOCARDIOGRAM REPORT ---
LOU SAUER Age: 56 : 1960 Gender: M Exam Date: 04/06/2017 12:37 Exam Location: 1 [address] Ht (in): 68 Wt (lb): 190 BSA: 2.05 BP: 124 / 76 Ordering Physician: MEI MORENO MD Referring Physician: MEI MORENO MD Technologist: Stewart Short [facility] Room Number: 172 Indications: CHEST PAIN Rhythm: Sinus Technical Quality: Good FINDINGS Left Ventricle Normal size left ventricle. Normal left ventricular wall thickness. Normal left ventricular ejection fraction visually estimated at > 55%. No obvious regional wall motion abnormalities. No obvious regional wall motion abnormalities. Right Ventricle Normal right ventricular size and function. Right Atrium Normal right atrial size. Left Atrium Normal left atrial size. Mitral Valve Mild mitral annular calcification. Trace mitral regurgitation. Aortic Valve Diffuse thickening (sclerosis) of the aortic valve cusps without reduced excursion. No aortic regurgitation. Tricuspid Valve Tricuspid valve not well visualized, grossly normal. Trace tricuspid regurgitation. Pulmonic Valve Pulmonic valve not well visualized, grossly normal. Pericardium No pericardial effusion. Great Vessels Normal size aortic root. CONCLUSIONS Normal left ventricular ejection fraction visually estimated at > 55%. Trace mitral regurgitation. Trace tricuspid regurgitation. Raplh Mcintyre M.D. (Electronically Signed) Final Date: 07 April 2017 21:33 MEASUREMENTS (Male / Female) Normal Values 2D ECHO LV Diastolic Diameter PLAX 4.7 cm 4.2 - 5.9 / 3.9 - 5.3 cm LV Systolic Diameter PLAX 3.4 cm 2.1 - 4.0 cm LV Fractional Shortening PLAX 27.7 % 25 - 46 % LV Ejection Fraction 2D Teich 53.7 % IVS Diastolic Thickness 1.0 cm LVPW Diastolic Thickness 1.1 cm LV Relative Wall Thickness 0.4 RV Internal Dim ED PLAX 3.1 cm 1.9 - 3.8 cm LVOT Diameter 2.2 cm Aortic Root Diameter 2.9 cm LA Systolic Diameter LX 3.2 cm 3.0 - 4.0 / 2.7 - 3.8 cm LV Ejection Fraction MOD BP 66.0 % >= 55 % LV Diastolic Length 4C 7.6 cm 6.9 - 10.3 cm LV Diastolic Area 4C 29.7 cm LV Diastolic Volume MOD 4C 95.0 cm LV Ejection Fraction MOD 4C 64.2 % LV Stroke Volume MOD 4C 61.0 cm LV Systolic Length 4C 6.5 cm LV Systolic Area 4C 16.3 cm LV Systolic Volume MOD 4C 34.0 cm LV Ejection Fraction MOD 2C 66.7 % LV Diastolic Volume 4C AL 98.5 cm 85 - 139 / 69 - 109 cm LV Systolic Volume 4C AL 34.7 cm LV Ejection Fraction 4C AL 64.8 % LV Stroke Volume 4C AL 63.8 cm LV Ejection Fraction 2C AL 68.5 % LA Volume 35.0 cm 18 - 58 / 22 - 52 cm DOPPLER AV Peak Velocity 141.0 cm/s AV Peak Gradient 8.0 mmHg LVOT Peak Velocity 80.5 cm/s LVOT Peak Gradient 2.6 mmHg AV Area Cont Eq pk 2.2 cm Mitral E Point Velocity 75.0 cm/s Mitral A Point Velocity 42.2 cm/s Mitral E to A Ratio 1.8 MV Deceleration Time 197.0 ms PV Peak Velocity 118.0 cm/s PV Peak Gradient 5.6 mmHg LV E' Lateral Velocity 9.8 cm/s Mitral E to LV E' Lateral Ratio 7.6 LV E' Septal Velocity 6.6 cm/s Mitral E to LV E' Septal Ratio 11.3
== END 2017-04-06 13:48 | disposition short-term general hospital (02) | DRG 282 ==
LOC: ERH 22:38 → 1NO 04-06 01:38 → ERHI 04-06 01:38 → ENRESERV 04-06 04:14 → 1NO 04-06 05:14
PROVIDERS: Emergency Medicine; ADMIT Student in an Organized Health Care Education/Training Program
DX: I21.4 Non-ST elevation (NSTEMI) myocardial infarction (principal); E78.5 Hyperlipidemia, unspecified; D72.829 Elevated white blood cell count, unspecified; E87.6 Hypokalemia; F17.210 Nicotine dependence, cigarettes, uncomplicated; K21.9 Gastro-esophageal reflux disease without esophagitis
CPT/HCPCS: 1NP; 80307; 82436; 93005; 93010; 93306; J1644; J1650; J3490